=== PATIENT | female | born 1960 | race Caucasian/White ===

== ENCOUNTER 2016-06-03 04:03 | Inpatient (IN) | payer OTHER ==
--- NOTE | ~2016-06-03 | HP ---
History And Physical [place] [id number] [facility] [place]. [address] NAME: STORM GARCIA : 62 STATUS : REG ER PAT#: [id number] AGE: 56 ADM/REG DATE : 06/03/16 MR#: [id number] REPORT SERV DATE: 06/03/16 DICTATED BY: TEJINDER GONSALES DATE: 06/03/16 REPORT STATUS : Draft TRANSCRIBED BY: MODRenato DATE: 06/03/16 DATE OF ADMISSION: 06/03/2016 CHIEF COMPLAINT: Chest pain, non ST elevation AK. HISTORY OF PRESENT ILLNESS: This is a 56-year-old woman without prior cardiovascular history. She does have a history of hypercholesterolemia and asthma as well as PACs. She has been under a lot of stress recently. Last evening around 8 o'clock, she was carrying out some [place] food and developed some severe back and retrosternal pain and pain between her shoulder blades. She had shortness of breath and precordial chest pain. These symptoms persisted and she presented to the emergency room in the practicing urologist hours of 06/03/2016. Evaluation revealed a fairly normal EKG but a troponin of 20. PAST MEDICAL HISTORY: 1. Asthma. 2. PVCs/PACs. 3. Hypercholesterolemia. SOCIAL HISTORY: She does not smoke or drink alcohol. FAMILY HISTORY: There is no family history of early coronary artery disease. REVIEW OF SYSTEMS: A complete review of systems was obtained, which is negative in detail except as mentioned above in the HPI. PHYSICAL EXAMINATION: VITAL SIGNS: Blood pressure 140/80, heart rate of 80, respiratory rate of 14. GENERAL: Comfortable in no acute distress. HEENT: Anicteric. No xanthelasma. Lips without cyanosis. NECK: No JVD. Carotids 2+ and symmetric. No carotid bruits. LUNGS: CTA bilaterally. No wheezes or rhonchi. No accessory muscle use. COR: RRR. Normally placed PMI. Normal S1 and S2. No murmurs, rubs or gallops. ABD: Soft, nontender, nondistended. Normal bowel sounds. No abdominal bruits. EXT: No clubbing, cyanosis or edema 2+ and symmetric distal pulses. SKIN: Warm. Dry. No venous stasis changes. MS: No kyphosis. NEURO/PSYCH: Oriented x3. No anxiety or depression. ALLERGIES: INCLUDE KEFLEX. MEDICATIONS: Include Crestor 5 mg daily, fish oil, aspirin 81 mg daily, Zyrtec, Lorazepam as needed, Prilosec. History And Physical [address] [address] NAME: STORM GARCIA : 62 STATUS : REG ER PAT#: [id number] AGE: 56 ADM/REG DATE : 06/03/16 MR#: [id number] REPORT SERV DATE: 06/03/16 DICTATED BY: TEJINDER GONSALES DATE: 06/03/16 REPORT STATUS : Draft TRANSCRIBED BY: RADHA DATE: 06/03/16 DIAGNOSTIC DATA: EKG: A 12-lead EKG shows sinus rhythm at 82 beats per minute. There is poor R-wave progression. Nonspecific T-wave abnormalities noted. LABORATORY STUDIES: Troponin of 20.1, creatinine of 0.7, potassium of 3.9, hematocrit of 39. INR of 1.0. Chest x-ray shows no evidence of cardiomegaly or congestive heart failure. IMPRESSION: This is a 56-year-old woman presenting with chest pain, back pain in the setting of a non-ST elevation AK. Differential includes stress-induced cardiomyopathy or standard plaque rupture non STEMI. I have recommended cardiac catheterization with possible percutaneous coronary intervention. I explained these issues to the patient and her , who understand and wished to proceed. We discussed risks and benefits. Okay for drug coated stent. ABIOLA/RADHA Tejinder Gonsales M.D. / [id number]
[~2016-06-03 04:03] MED LIST: ASAB PO; ATV1 PO; BLACK COHOSH PO; CALTRA600D PO; CRESTOR5 MG PO; FISH-EPA1000 MG PO; GLUCCHONDR PO; HARD NAILS OR; LIOR10 PO; MULTIVITAMI1 PO; NASACORTAQ NAS; PRILOSEC OTC20 MG PO; ZYRTEC ALLGY10 MG PO
[2016-06-03 04:16] LABS: BASOPHILS 0.3 %; BASOPHILS ABSOLUTE 0.03 10/3/uL (0.0-0.16); ER CBC TAT 0 Hrs 04 MinsNP; HEMATOCRIT 39.9 % (36.0-48.0); HEMOGLOBIN 13.2 g/dL (12.0-16.0); IMMATURE GRANULOCYTES 0.2 %; IMMATURE GRANULOCYTES ABSOLUTE 0.02 10/3/uL (0.0-0.11); LYMPHOCYTES 16.2 %; LYMPHOCYTES ABSOLUTE 1.65 10/3/uL (0.67-4.30); MANUAL DIFF NO %; MEAN CORPUS HGB CONC 33.1 g/dL (32.0-36.0); MEAN CORPUSCULAR HEMOGLOB 28.4 pg (26.0-34.0); MEAN CORPUSCULAR VOLUME 85.8 fL (80-100); MONOCYTES 8.6 %; MONOCYTES ABSOLUTE 0.87 10/3/uL (0.21-1.20); NEUTROPHILS 72.7 %; PLATELET COUNT 261 10/3/uL (150-400); RBC DISTRIBUTION WIDTH 12.8 % (12.0-16.0); RED CELL COUNT 4.65 10/6/uL (4.0-5.6); WHITE BLOOD CELLS 10.2 10/3/uL (4.5-10.5)
[2016-06-03 04:22] LABS: PARTIAL THROMBO TIME 26.7 SEC (22.5-37.2); PROTIME (NOT ORD) 12.9 SEC (12.0-14.5)
[2016-06-03 04:33] LABS: BUN (BLOOD UREA NITROGEN) 13 MG/DL (6-23); CHLORIDE, SERUM 105 MMOL/L (96-112); CO2 (CARBON DIOXIDE) 31 MMOL/L (24-34); CREATININE 0.77 MG/DL (0.55-1.02); GFR AFRICAN AMERICAN 101 ML/MIN (>=60); GFR NON AFRICAN AMERICAN 87 ML/MIN (>=60); GLUCOSE, SERUM 129 MG/DL (60-99); POTASSIUM, SERUM 3.9 MMOL/L (3.5-5.3); SODIUM, SERUM 142 MMOL/L (135-148)
[2016-06-03 04:35] LABS: CHEST PAIN PROFILE TAT 0 Hrs 23 Mins
[2016-06-03] MEDS ORDERED: PRILO PO (07:15)
[2016-06-03] MEDS ORDERED: CRESTOR5 MG PO (07:15)
[2016-06-03] MEDS ORDERED: BUSPAR10 PO (07:15)
[2016-06-03] MEDS ORDERED: ZYRTEC ALLGY10 MG PO (07:16)
[2016-06-03] MEDS ORDERED: CALTRA600D PO (07:16)
[2016-06-03] MEDS ORDERED: FLEXI JOIN1 PO (07:16)
[2016-06-03] MEDS ORDERED: ASAB PO (07:17)
[2016-06-03] MEDS ORDERED: FISH OIL1200 MG PO (07:17)
[2016-06-03] MEDS ORDERED: MULTIVIT/MIN PO (07:17)
[2016-06-03] MEDS ORDERED: PROAIR HFA INH (07:18)
[2016-06-03] MEDS ORDERED: ATV1 PO (07:18)
[2016-06-03] MEDS ORDERED: SUDAFED 12HR120 MG PO (07:19)
[2016-06-03] MEDS ORDERED: MUCINEX1200 MG PO (07:19)
[2016-06-03] MEDS ORDERED: LIOR10 PO (07:20)
[2016-06-03] MEDS ORDERED: ALEVE220 MG PO (07:20)
[2016-06-03] MEDS ORDERED: DIPROSONE CREAM15 GM TOP (07:21)
[2016-06-04 02:45] LABS: BASOPHILS 0.1 %; BASOPHILS ABSOLUTE 0.01 10/3/uL (0.0-0.16); EOSINOPHILS 1.6 %; EOSINOPHILS ABSOLUTE 0.15 10/3/uL (0.0-0.53); HEMATOCRIT 37.6 % (36.0-48.0); HEMOGLOBIN 11.9 g/dL (12.0-16.0); IMMATURE GRANULOCYTES 0.2 %; IMMATURE GRANULOCYTES ABSOLUTE 0.02 10/3/uL (0.0-0.11); LYMPHOCYTES 19.6 %; LYMPHOCYTES ABSOLUTE 1.78 10/3/uL (0.67-4.30); MEAN CORPUS HGB CONC 31.6 g/dL (32.0-36.0); MEAN CORPUSCULAR VOLUME 85.5 fL (80-100); MEAN PLATELET VOLUME 11.2 fL (9.2-13.0); MONOCYTES 7.3 %; MONOCYTES ABSOLUTE 0.66 10/3/uL (0.21-1.20); NEUTROPHILS 71.2 %; NEUTROPHILS ABSOLUTE 6.48 10/3/uL (2.02-8.40); PLATELET COUNT 266 10/3/uL (150-400); RBC DISTRIBUTION WIDTH 12.9 % (12.0-16.0); WHITE BLOOD CELLS 9.1 10/3/uL (4.5-10.5)
[2016-06-04 02:46] LABS: MANUAL DIFF NO %
[2016-06-04 03:13] LABS: BUN (BLOOD UREA NITROGEN) 11 MG/DL (6-23); CALCIUM, SERUM 8.3 MG/DL (8.5-10.4); CHLORIDE, SERUM 106 MMOL/L (96-112); CHOL/HDL RATIO(NOT ORDER) 2.2 (0-5); CHOLESTEROL 141 MG/DL (< 200); CO2 (CARBON DIOXIDE) 30 MMOL/L (24-34); CREATININE 0.63 MG/DL (0.55-1.02); GFR AFRICAN AMERICAN 117 ML/MIN (>=60); GFR NON AFRICAN AMERICAN 101 ML/MIN (>=60); GLUCOSE, SERUM 107 MG/DL (60-99); HDL CHOLESTEROL 63 MG/DL (> 49); LDL CHOLESTEROL 46 MG/DL (< 130); NON-HDL CHOLESTEROL 78 MG/DL (< 160); POTASSIUM, SERUM 3.8 MMOL/L (3.5-5.3); SGPT(ALT) 81 U/L (5-65); SODIUM, SERUM 143 MMOL/L (135-148); TRIGLYCERIDE 160 MG/DL (< 150)
[2016-06-04 08:52] LABS: TROPONIN I 7.35 NG/ML (<0.05)
[2016-06-05] MEDS ORDERED: PLAVIX PO (07:11)
[2016-06-05] MEDS ORDERED: LOP25 PO (07:13)
[2016-06-05] MEDS ORDERED: IMDUR30 PO (07:14)
== END 2016-06-05 07:35 | disposition home or self-care (01) | DRG 281 ==
LOC: ER 04:03 → SSU1 08:18
PROVIDERS: Emergency Medicine; Internal Medicine; Internal Medicine Cardiovascular Disease
PROC: 4A023N7 Measurement of Cardiac Sampling and Pressure, Left Heart, Percutaneous Approach (ICD-10-PCS; principal; 2016-06-03)
PROC: B2151ZZ Fluoroscopy of Left Heart using Low Osmolar Contrast (ICD-10-PCS; 2016-06-03)
PROC: B2111ZZ Fluoroscopy of Multiple Coronary Arteries using Low Osmolar Contrast (ICD-10-PCS; 2016-06-03)
DX: I21.4 Non-ST elevation (NSTEMI) myocardial infarction (principal); I47.1 Supraventricular tachycardia; I25.10 Atherosclerotic heart disease of native coronary artery without angina pectoris; E78.00 Pure hypercholesterolemia, unspecified; J45.909 Unspecified asthma, uncomplicated; I49.1 Atrial premature depolarization; J44.9 Chronic obstructive pulmonary disease, unspecified; E78.5 Hyperlipidemia, unspecified
CPT/HCPCS: 71010; 80048; 80061; 83735; 84460; 84484; 84703; 85025; 85610; 85730; 93005; 93458; 99152; 99153; 99291; A9270-GY; C1769; C1887; C1894; C8929; J2250; J2405; J3010; Q9957; Q9967

== ENCOUNTER 2016-08-25 13:40 | Observation (INO) | payer OTHER ==
--- NOTE | ~2016-08-25 | HP ---
History And Physical [place] [address] [facility] [place]. [address] NAME: STORM GARCIA : 62 STATUS : ADM Eleno PAT#: [id number] AGE: 56 ADM/REG DATE : 08/25/16 MR#: [id number] REPORT SERV DATE: 08/26/16 DICTATED BY: BOB JOHN DATE: 08/26/16 REPORT STATUS : Draft TRANSCRIBED BY: MODL DATE: 08/26/16 DATE OF ADMISSION: 08/25/2016 MEDIA SUPERVISOR: Dr. Gonsales. CHIEF COMPLAINT: Back pain. HISTORY OF PRESENT ILLNESS: This is a pleasant 56-year-old white female well known to Dr. Gonsales. She does have a history of a sqr-QR-jfzwnbear myocardial infarction in june 2016, in which she was discovered on cardiac catheterization to have a mid to distal LAD coronary artery dissection. Ejection fraction at that time was 40%. Since then, she reports that she has done very well, and has returned to work, and is exercising on the treadmill regularly with her sister. She denies any symptoms on the treadmill. However, over the past one week, she has felt mid back pain between the shoulder blades. She reports that it is a discomfort that is different than when she had her dissection, but it is in the same overall area. She has no associated symptoms. She attributed initially to poor posture as she does see a chiropractor. However, she did continue to have episodes of "at random" of this back pain. She did have one of the episodes while she was on the treadmill, but she does say that it did not seem to worsen or improved with being on the treadmill. After discussions with multiple people, she decided to go to the emergency department as these episodes have been going on for approximately one week. She has been ruled out for acute coronary syndrome with three negative troponins. She denies any further symptoms. As previously noted, she does not have any associated symptoms including no dyspnea on exertion, no edema, no syncope or near syncope. PAST MEDICAL HISTORY: 1. Coronary artery dissection to the mid to distal LAD noted on cath arteriogram, 06/03/2016. 2. NSTEMI, 06/03/2016. 3. Cardiomyopathy with an ejection fraction of 40% with anteroseptal and apical hypokinesis on echocardiogram, 06/03/2016. 4. Palpitations. 5. Asthma. 6. Hypercholesterolemia. 7. Eczema of the hands. 8. GERD. 9. Anxiety and panic attacks. PAST SURGICAL HISTORY: 1. Please see cath arteriogram above. 2. Left hammertoe of the second toe surgery. 3. Cholecystectomy. 4. Breast biopsy. 5. Tubal ligation. 6. Right neck and right groin lymph node biopsied in 1989. 7. [place] teeth removed in 1981. History And Physical [address] [address] NAME: STORM GARCIA : 62 STATUS : ADM Eleno PAT#: [id number] AGE: 56 ADM/REG DATE : 08/25/16 MR#: [id number] REPORT SERV DATE: 08/26/16 DICTATED BY: BOB JOHN DATE: 08/26/16 REPORT STATUS : Draft TRANSCRIBED BY: RADAH DATE: 08/26/16 8. Left hammertoe repair, second toe in 2014. FAMILY HISTORY: Father with Uztxd-Rxnuxtebj-Mzpms syndrome. Otherwise it is negative for coronary artery disease. SOCIAL HISTORY: She denies any tobacco abuse. She denies any alcohol or illicit drug use. She works in customer service with a sedentary job. She exercises regularly on a treadmill, and has been doing so since dissection, and denies any symptoms. REVIEW OF SYSTEMS: As above per HPI, all other systems reviewed and negative. ALLERGIES: KEFLEX, REACTION RASH. MEDICATIONS: Medication list is reviewed and is as follows: 1. Ventolin 1 inhalation every 4 hours as needed for shortness of breath. 2. Aspirin 81 mg p.o. daily. 3. Buspirone 10 mg p.o. at bedtime as needed for anxiety. 4. Caltrate 600 mg p.o. daily. 5. Zyrtec 10 mg p.o. daily. 6. Plavix 75 mg p.o. daily. 7. Glucosamine chondroitin 1 tablet p.o. daily. 8. Mucinex 600 mg p.o. every 12 hours as needed for allergies. 9. Imdur 30 mg p.o. daily. 10.Ativan 0.5 to 1 mg p.o. at bedtime as needed for anxiety. 11.Metoprolol tartrate 25 mg p.o. twice per day. 12.Multivitamin 1 tablet p.o. daily. 13.[place]-3 fatty acid 1000 mg p.o. daily. 14.Prilosec OTC 20 mg p.o. daily. 15.Crestor 5 mg p.o. daily. PHYSICAL EXAMINATION: VITAL SIGNS: BP: 129/60. PULSE: 73. RR: 16. T: 97.7. O2 saturation 94% on room air. WT: 94.6 kg. GENERAL: Well-developed, well-nourished. In no apparent distress. HEENT: Head normocephalic. No xanthelasma. Sclera clear, anicteric. Moist mucous membranes without pallor. No lymphadenopathy. No deficits noted. NECK: Trachea midline. Supple. No thyromegaly, JVD, or bruits. RESPIRATORY: Unlabored respirations. Breath sounds clear bilaterally to posterior auscultation. No wheezes, rhonchi or crackles. CARDIOVASCULAR: Regular rate and rhythm. No murmur, rub, or gallop appreciated. No chest wall tenderness to palpation. ABDOMEN: Soft, nontender, and nondistended. Active bowel sounds auscultated x4 quadrants. No organomegaly and no masses. No aortic bruit. EXTREMITIES: DP/PT and radial pulses 2+ bilaterally. No clubbing, cyanosis, or edema. SKIN: Warm, dry, intact. No rash. Normal turgor. MUSCULOSKELETAL: Moves all extremities in bed without difficulty. History And Physical [address] [address] NAME: STORM GARCIA : 62 STATUS : ADM [place] PAT#: [id number] AGE: 56 ADM/REG DATE : 08/25/16 MR#: [id number] REPORT SERV DATE: 08/26/16 DICTATED BY: BOB JOHN DATE: 08/26/16 REPORT STATUS : Draft TRANSCRIBED BY: MODL DATE: 08/26/16 NEURO/PSYCH: Alert and oriented x3 with no acute distress. Affect appropriate to current situation. LABORATORY DATA: BMP: Sodium 143, potassium 4.1, creatinine 0.69, glucose 98, calcium 9.3, and magnesium 2.1. CBC: White blood cell count 6.8, hemoglobin 12.6, hematocrit 38, and platelets a 199. Troponin is less than 0.02 x3. BNP 73.4. Chest x-ray, no focal airspace abnormalities. EKG; personally interpreted, normal sinus rhythm with low-voltage QRS. Nonspecific T-wave changes. Telemetry; normal sinus rhythm. ASSESSMENT AND PLAN: 1. Back pain. Question anginal equivalent, three negative troponins. EKG with nonspecific ST changes. This is in a patient who did have back pain when she had an LAD dissection on 06/03/2016. Nuclear stress test has been ordered for risk stratification, given history of ypy-TB-rjmweobod myocardial infarction with LAD dissection. If it is low risk with no ischemia, RN is to discharge the patient home. She is to follow up with the primary care provider in one week, keep followup appointment with Dr. Gonsales which is upcoming in several weeks, and keep outpatient echocardiogram which has previously been ordered. The patient voiced understanding in agreement with the plan. 2. History of cut-AK-cqtuuyxxs myocardial infarction with LAD dissection on 06/03/2016. This is noted and I will continue current med management with aspirin, statin, beta- wilbert, Plavix, and Imdur. She is to keep her outpatient followups as previously discussed. 3. Hyperlipidemia. We will continue statin. She is to discuss further with Dr. Gonsales whether to increase her Crestor dosage further while she is in the office visit. She is currently taking Crestor 5 mg daily. The patient was also seen down in the nuclear stress testing area by Dr. Bentley, and she has undergone a stress test. We await the results. BAO/RADHA oBb John NP / [id number] CC: Jelly Calderon, MSN, DIRECTOR OF RETENTION-BC History And Physical [address] [address] NAME: STORM GARCIA : 62 STATUS : ADM [place] PAT#: [id number] AGE: 56 ADM/REG DATE : 08/25/16 MR#: [id number] REPORT SERV DATE: 08/26/16 DICTATED BY: BOB JOHN DATE: 08/26/16 REPORT STATUS : Draft TRANSCRIBED BY: RADHA DATE: 08/26/16 MD Juan Dwyer MD William Warren, M.D.
[2016-08-25 13:19] LABS: BASOPHILS 0.3 %; BASOPHILS ABSOLUTE 0.02 10/3/uL (0.0-0.16); EOSINOPHILS 1.3 %; EOSINOPHILS ABSOLUTE 0.09 10/3/uL (0.0-0.53); ER CBC TAT 0 Hrs 03 Mins; HEMOGLOBIN 12.6 g/dL (12.0-16.0); IMMATURE GRANULOCYTES 0.6 %; IMMATURE GRANULOCYTES ABSOLUTE 0.04 10/3/uL (0.0-0.11); LYMPHOCYTES 21.8 %; LYMPHOCYTES ABSOLUTE 1.49 10/3/uL (0.67-4.30); MANUAL DIFF NO %; MEAN CORPUS HGB CONC 33.2 g/dL (32.0-36.0); MEAN CORPUSCULAR HEMOGLOB 28.3 pg (26.0-34.0); MEAN CORPUSCULAR VOLUME 85.2 fL (80-100); MEAN PLATELET VOLUME 11.1 fL (9.2-13.0); MONOCYTES ABSOLUTE 0.41 10/3/uL (0.21-1.20); NEUTROPHILS ABSOLUTE 4.77 10/3/uL (2.02-8.40); PLATELET COUNT 199 10/3/uL (150-400); RBC DISTRIBUTION WIDTH 13.2 % (12.0-16.0); RED CELL COUNT 4.46 10/6/uL (4.0-5.6); WHITE BLOOD CELLS 6.8 10/3/uL (4.5-10.5)
[2016-08-25 13:34] LABS: BUN (BLOOD UREA NITROGEN) 21 MG/DL (6-23); CALCIUM, SERUM 9.3 MG/DL (8.5-10.4); CHEST PAIN PROFILE TAT 0 Hrs 18 Mins; CHLORIDE, SERUM 109 MMOL/L (96-112); CO2 (CARBON DIOXIDE) 32 MMOL/L (24-34); CREATININE 0.69 MG/DL (0.55-1.02); GFR AFRICAN AMERICAN 114 ML/MIN (>=60); GFR NON AFRICAN AMERICAN 98 ML/MIN (>=60); GLUCOSE, SERUM 98 MG/DL (60-99); POTASSIUM, SERUM 4.1 MMOL/L (3.5-5.3); SODIUM, SERUM 143 MMOL/L (135-148); TROPONIN I <0.02 NG/ML (<0.05)
[~2016-08-25 13:40] MED LIST changes: +ALEVE220 MG PO; +BUSPAR10 PO; +DIPROSONE CREAM15 GM TOP; +FISH OIL1200 MG PO; +FLEXI JOIN1 PO; +IMDUR30 PO; +LOP25 PO; +MUCINEX1200 MG PO; +MULTIVIT/MIN PO; +PLAVIX PO; +PRILO PO; +PROAIR HFA INH; +SUDAFED 12HR120 MG PO
[2016-08-25 14:23] LABS: PARTIAL THROMBO TIME 27.4 SEC (22.5-37.2); PROTIME (NOT ORD) 13.5 SEC (12.0-14.5)
[2016-08-25] MEDS ORDERED: CRESTOR5 MG PO (16:01)
[2016-08-25] MEDS ORDERED: BUSPAR10 PO ×2 (16:02→16:15)
[2016-08-25] MEDS ORDERED: FISH-EPA1000 MG PO (16:04)
[2016-08-25] MEDS ORDERED: CALTRA600D PO (16:04)
[2016-08-25] MEDS ORDERED: ZYRTEC ALLGY10 MG PO (16:04)
[2016-08-25] MEDS ORDERED: GLUCCHONDR PO (16:05)
[2016-08-25] MEDS ORDERED: PLAVIX PO (16:05)
[2016-08-25] MEDS ORDERED: ASAB PO (16:05)
[2016-08-25] MEDS ORDERED: IMDUR30 PO (16:06)
[2016-08-25] MEDS ORDERED: MULTIVITAMI1 PO (16:07)
[2016-08-25] MEDS ORDERED: LOP25 PO (16:07)
[2016-08-25] MEDS ORDERED: VENTOLIN HFA INH (16:08)
[2016-08-25] MEDS ORDERED: PRILOSEC OTC20 MG PO (16:08)
[2016-08-25] MEDS ORDERED: ATV1 PO (16:10)
[2016-08-25] MEDS ORDERED: MUCINEX600 MG PO (16:12)
[2016-08-25] MEDS ORDERED: AUG875 PO (16:13)
[2016-08-26] MEDS ORDERED: NITROQUICK0.4 MG SL (14:53)
== END 2016-08-26 16:08 | disposition home or self-care (01) ==
LOC: ER 13:40 → CDU1 16:11
PROVIDERS: Physician Assistant
DX: M54.9 Dorsalgia, unspecified (principal); I25.2 Old myocardial infarction; E78.5 Hyperlipidemia, unspecified; I25.10 Atherosclerotic heart disease of native coronary artery without angina pectoris; I42.9 Cardiomyopathy, unspecified; R00.2 Palpitations; J45.909 Unspecified asthma, uncomplicated; E78.00 Pure hypercholesterolemia, unspecified; K21.9 Gastro-esophageal reflux disease without esophagitis; F41.9 Anxiety disorder, unspecified; Z90.49 Acquired absence of other specified parts of digestive tract; Z98.51 Tubal ligation status; Z98.890 Other specified postprocedural states; Z88.1 Allergy status to other antibiotic agents; Z79.82 Long term (current) use of aspirin; Z79.899 Other long term (current) drug therapy
CPT/HCPCS: 71010; 78452; 80048; 83735; 83880; 84484; 85025; 85610; 85730; 93005; 93017; 93308; 99285; A9270-GY; A9502; G0378